=== PATIENT | female | born 1995 | race Caucasian/White ===

== ENCOUNTER → 2022-10-24 | Outpatient (CLI) | payer OTHER | LOC: MHCPAIN 11:11 | DX: M79.18 Myalgia, other site (principal); M54.12 Radiculopathy, cervical region | CPT/HCPCS: G0463 ==

== ENCOUNTER 2024-06-02 16:14 | Emergency (ER) | payer OTHER ==
[~2024-06-02] VITALS: Ht 152.4 cm; Wt 61.4 kg
[2024-06-02 16:30] VITALS: TEMP 98.1
[2024-06-02 20:07] LABS: BASO % 0.4 % (0.0-2.0); EOS # 0.1 K/mm3 (0.0-0.7); EOS % 0.8 % (0.0-4.0); GRAN # 3.9 K/mm3 (1.4-6.5); GRAN % 52.3 % (42.2-75.2); HEMATOCRIT 41.8 % (37.0-47.0); HEMOGLOBIN 15.6 g/dl (12.5-16.0); LYMPH % 39.8 % (20.0-51.0); MEAN CELL VOLUME 93 fl (80.0-100.0); MEAN CORPUSCULAR HEMOGLOBIN 35 pg (27-31); MEAN CORPUSCULAR HGB CONC 37 g/dl (33.0-37.0); MEAN PLATELET VOLUME 9.6 fl (7.4-10.4); MONO # 0.5 K/mm3 (0.1-0.6); MONO % 6.6 % (1.7-9.3); PLATELET COUNT 255 K/mm3 (130-400); REDCELL DISTRIBUTION WIDTH-CV 11.9 % (11.5-14.5)
[2024-06-02 20:29] LABS: ALANINE AMINOTRANSFERASE 30 U/L (0-55); ALKALINE PHOSPHATASE 46 U/L (40-150); ANION GAP 10 mmol/L (7-16); AST,SGOT 21 U/L (5-34); BILIRUBIN,TOTAL 0.8 mg/dL (0.2-1.2); BLOOD UREA NITROGEN 6 mg/dL (7-19); CALCIUM 9.4 mg/dL (8.4-10.2); CHLORIDE 107 mEq/L (98-107); CREATININE, serum 0.72 mg/dL (0.57-1.11); GLUCOSE 84 mg/dL (70-99); POTASSIUM 4.2 mEq/L (3.5-4.5); SODIUM 138 mEq/L (136-145); TOTAL PROTEIN 6.4 g/dl (6.2-8.1)
[2024-06-02 20:42] LABS: TROPONIN-I < 0.010 ng/mL (0.00-0.033)
[2024-06-02 20:52] LABS: ALBUMIN 4.3 g/dL (3.5-5.0)
[2024-06-02 21:48] VITALS: BP 126/83; PULSE 73
== END 2024-06-02 21:47 | disposition home or self-care (01) ==
LOC: COL.ER 16:14
PROVIDERS: Emergency Medicine
DX: R07.89 Other chest pain (principal); R42 Dizziness and giddiness